=== PATIENT | female | born 1970 | race Caucasian/White ===

== ENCOUNTER → 2017-12-16 | Outpatient (CLI) | payer MEDICAID ==
[~2017-12-16] MED LIST: GADOBUTROL 10 MMOL/10 ML VIAL ONE; LIDOCAINE 1%, 20ML ONE; LIDOCAINE 1%-EPI 1:100K, 20ML ONE; OMNIPAQUE 350 MG/ML, 100ML BOTTLE ONE; SODIUM BICARBONATE 4.0%, 5ML ONE
== END | disposition home or self-care (01) ==
LOC: CFH 11:44
PROVIDERS: ATTEND Surgery
DX: C50.911 Malignant neoplasm of unspecified site of right female breast (principal); R59.1 Generalized enlarged lymph nodes; F17.210 Nicotine dependence, cigarettes, uncomplicated; Z79.899 Other long term (current) drug therapy
CPT/HCPCS: 19083; 19285; 71260; 74177; 76642; 77066; 88305; 88333; 88360; A9585; C8908; J3490; Q9967

== ENCOUNTER 2017-12-21 13:05 | Day surgery (SDC) | payer SELFPAY ==
[~2017-12-21] VITALS: Ht 167.6 cm; Wt 54.0 kg
[2017-12-21] MEDS ORDERED: CEFAZOLIN PMX 1GM/50ML 50 ML IV ONE (13:23)
[2017-12-21 13:31] VITALS: BP 123/82
[2017-12-21] MEDS ORDERED: SODIUM CHLORIDE 0.9% 1,000 ML IV SCH (13:33)
[2017-12-21] MEDS ORDERED: LIDOCAINE-MPF 2%, 2ML ONE (14:57)
[2017-12-21] MEDS ORDERED: FENTANYL PF 100 MCG/2ML ONE ×2 (15:12)
[2017-12-21] MEDS ORDERED: FLUMAZENIL 0.1 MG/1 ML, 5ML ONE (15:12)
[2017-12-21] MEDS ORDERED: MIDAZOLAM 1 MG/ML, 5ML ONE (15:12)
[2017-12-21] MEDS ORDERED: NALOXONE 1 MG/ML, 2ML ONE (15:12)
== END 2017-12-21 18:35 | disposition home or self-care (01) ==
LOC: OUT 13:05
PROVIDERS: ATTEND Surgery
DX: Z45.2 Encounter for adjustment and management of vascular access device (principal); C50.911 Malignant neoplasm of unspecified site of right female breast; F17.210 Nicotine dependence, cigarettes, uncomplicated; Z79.899 Other long term (current) drug therapy; Z72.89 Other problems related to lifestyle
CPT/HCPCS: 36561; 76937; 77001; 99156; 99157; C1788; J0690; J1642; J2250; J3010; J3490; J7030; J2310

== ENCOUNTER → 2017-12-22 | Outpatient (CLI) | payer SELFPAY | END | disposition home or self-care (01) | LOC: RAD 09:35 | PROVIDERS: ATTEND Surgery | DX: C50.911 Malignant neoplasm of unspecified site of right female breast (principal) | CPT/HCPCS: 78306; A9503; J1642 ==

== ENCOUNTER → 2017-12-27 | Outpatient (CLI) | payer SELFPAY | END | disposition home or self-care (01) | LOC: CFH 14:35 → EDSTATUS 16:45 | PROVIDERS: ATTEND Internal Medicine | DX: M79.601 Pain in right arm (principal); M79.89 Other specified soft tissue disorders; C50.811 Malignant neoplasm of overlapping sites of right female breast ==

== ENCOUNTER → 2017-12-28 | Outpatient (CLI) | payer SELFPAY ==
[~2017-12-28] MED LIST changes: -GADOBUTROL 10 MMOL/10 ML VIAL ONE; +GADOBUTROL 7.5 MMOL/7.5 ML PFS ONE; -LIDOCAINE 1%, 20ML ONE; -LIDOCAINE 1%-EPI 1:100K, 20ML ONE; -SODIUM BICARBONATE 4.0%, 5ML ONE
== END | disposition home or self-care (01) ==
LOC: CFH 13:05
PROVIDERS: ATTEND Internal Medicine
DX: R59.0 Localized enlarged lymph nodes (principal); C50.811 Malignant neoplasm of overlapping sites of right female breast
CPT/HCPCS: 70491; 70553; 93306; A9585; Q9967